=== PATIENT | male | born 1970 | race African-American/Black ===

== ENCOUNTER 2020-01-13 12:10 | Emergency (ER) | payer OTHER ==
[2020-01-13] MEDS ORDERED: Ondansetron ODT 4 MG TAB ONE (13:24)
== END 2020-01-13 13:57 | disposition home or self-care (01) ==
LOC: NAV ERS 12:10
DX: J02.9 Acute pharyngitis, unspecified (principal); M10.9 Gout, unspecified; E78.5 Hyperlipidemia, unspecified; E78.00 Pure hypercholesterolemia, unspecified; I10 Essential (primary) hypertension
CPT/HCPCS: 87081; 87430; 99283; Q0162